=== PATIENT | female | born 1990 | race Caucasian/White ===

== ENCOUNTER 2019-10-22 14:38 | Emergency (ER) | payer MEDICAID ==
[~2019-10-22] VITALS: Ht 162.6 cm; Wt 76.7 kg
[2019-10-22 14:48] VITALS: Ht 162.6 cm; Wt 76.7 kg
[2019-10-22 16:00] VITALS: BP 130/84
== END 2019-10-22 16:00 | disposition home or self-care (01) ==
LOC: ED 14:38
DX: G51.0 Bell's palsy (principal)
CPT/HCPCS: J7512